=== PATIENT | female | born 1950 | race Caucasian/White ===

== ENCOUNTER → 2017-01-17 | Outpatient (CLI) | payer MEDICARE ==
[~2017-01-17] MED LIST: ACCUNEB 0.1.25 MG/1 NEB; ADVAIR 250/501 EA INH; ALBUTEROL0.09 MG/A2 IH; ALBUTEROL2.5 MG/0.5 INH; AMBIEN10 M1 PO; ANAPROX DS550 MG PO; AUGMENTIN 875 M1 TAB PO; BIAXIN500 MG PO; BROMFED 2 MG/5120 ML PO; BUDESONIDE3 MG PO; BUSPAR5 MG PO; CLARITIN10 MG PO; COMBIVENT1 ARO IH; DAYPRO600 M1 PO; ENDOCORT; FLONASE ALLERG9.9 ML NAS; IBU800 MG PO; KEFLEX500 MG PO; KETOROLAC10 MG PO; LEVOFLOXACIN500 MG PO; MEDROL DOSEPAK4 MG PO; MELATONIN5 MG PO; MIRALAX POWDER17 G1 PO; NORCO 5-325 TA1 EACH PO; PREDNICOT10 MG PO; PREDNICOT20 MG PO; PREDNISONE10 MG PO; PREDNISONE20 M1 PO; PREDNISONE20 MG PO; PROTONIX40 MG PO; PROVENTIL; PROVENTIL0.09 MG/AC IH; RITE AID MELATON5 MG PO; ROBAXIN500 M1 PO; ROBAXIN500 MG PO; ROBITUSSIN DM 105 ML PO; SYMBICORT1 AE1 IH; TESSALON PERLE100 M1 PO; TORADOL10 MG PO; UNKNOWN INHALER; VALIUM10 MG; VIBRAMYCIN100 MG PO; VICODIN 5-3001 EACH PO; VICODIN 5/500 505 MG PO; VICODIN 500 MG-1 TAB PO; VICODIN ES 7501 TAB PO; VOLTAREN50 M1 PO; XANAX1 MG; ZANTAC150 MG PO; ZITHROMAX Z PA250 MG PO; ZOFRAN4 MG PO
== END | disposition home or self-care (01) ==
LOC: RAD 18:09
DX: M25.552 Pain in left hip (principal); R26.2 Difficulty in walking, not elsewhere classified; R10.2 Pelvic and perineal pain

== ENCOUNTER 2017-04-17 09:50 | Emergency (ER) | payer MEDICARE ==
[~2017-04-17] VITALS: Wt 41.7 kg
[2017-04-17 09:56] VITALS: BP 139/70
[2017-04-17] MEDS ORDERED: LIDODERM 5% PATC1 EA PO ×2 (10:16→10:27)
== END 2017-04-17 10:37 | disposition home or self-care (01) ==
LOC: ED 09:50
DX: G89.29 Other chronic pain (principal); M54.9 Dorsalgia, unspecified; F17.200 Nicotine dependence, unspecified, uncomplicated; J44.9 Chronic obstructive pulmonary disease, unspecified; Z88.8 Allergy status to other drugs, medicaments and biological substances; Z91.040 Latex allergy status; Z79.899 Other long term (current) drug therapy

== ENCOUNTER → 2017-06-05 | Outpatient (CLI) | payer MEDICARE ==
[~2017-06-05] MED LIST changes: +LIDODERM 5% PATC1 EA PO
== END | disposition home or self-care (01) ==
LOC: CT 11:23
DX: J18.9 Pneumonia, unspecified organism (principal); R10.31 Right lower quadrant pain; K76.89 Other specified diseases of liver; Z90.49 Acquired absence of other specified parts of digestive tract; Z96.89 Presence of other specified functional implants

== ENCOUNTER 2017-06-08 11:46 | Emergency (ER) | payer MEDICARE ==
[~2017-06-08] VITALS: Ht 149.8 cm; Wt 39.9 kg
[2017-06-08 11:57] VITALS: BP 109/62
== END 2017-06-08 12:42 | disposition left against medical advice (07) ==
LOC: ED 11:46
DX: M25.551 Pain in right hip (principal); F17.200 Nicotine dependence, unspecified, uncomplicated; Z88.8 Allergy status to other drugs, medicaments and biological substances; Z91.040 Latex allergy status; Z53.20 Procedure and treatment not carried out because of patient's decision for unspecified reasons

== ENCOUNTER → 2017-06-11 | Outpatient (CLI) | payer MEDICARE | END | disposition home or self-care (01) | LOC: RAD 13:39 | DX: J44.9 Chronic obstructive pulmonary disease, unspecified (principal); J45.909 Unspecified asthma, uncomplicated; I25.2 Old myocardial infarction; M25.551 Pain in right hip ==

== ENCOUNTER 2017-09-30 00:37 | Inpatient (IN) | payer MEDICARE ==
[2017-09-30] VITALS (15 sets, daily range): BP systolic 97–136; BP diastolic 46–66
[~2017-09-30] VITALS: Ht 152.4 cm; Wt 41.5 kg
--- NOTE | ~2017-09-30 | EKG ---
[place], [place] ELECTROCARDIOGRAM REPORT NAME: MARTI ZAVALA UNIT #: [id number] ROOM: 405 DOCTOR: ADRIANE PONCE,KARI BIRTHDATE: [birth year] DOS: 09/30/2017 TIME: 1:10 a.m. IMPRESSION: 1. Sinus rhythm. 2. Normal QT interval. KARI FORREST MD CM:EKGRPT:ELECTROCARDIOGRAM REPORT [id number] KARI FORREST MD
[~2017-09-30 00:37] MED LIST changes: -XANAX1 MG; +XANAX1 MG PO
[2017-09-30 01:16] LABS: BASO % 0.4 % (0.0-1.0); EOS # 0.2 10*3/uL (0.0-0.4); EOS % 2.9 % (1.0-4.0); HEMATOCRIT 41.5 % (37.0-47.0); HEMOGLOBIN 13.8 g/dl (12.0-16.0); LYMPH # 2.7 10*3/uL (1.3-4.4); LYMPH % 39.4 % (27.0-41.0); MEAN CELL VOLUME 88.3 fl (81.0-99.0); MEAN CORPUSCULAR HGB 29.4 pg (27.0-31.0); MEAN CORPUSCULAR HGB CONC 33.3 g/dl (33.0-37.0); MEAN PLATELET VOLUME 10.4 fl (9.6-12.3); MONO # 0.6 10*3/uL (0.1-1.0); MONO % 8.2 % (3.0-9.0); NEUT # 3.4 10*3/uL (2.3-7.9); NEUT % 48.8 % (47.0-73.0); PLATELET COUNT AUTOMATED 214 10*3/uL (130-400); RED CELL DISTRI WIDTH 14.8 % (0-14.5); WHITE BLOOD COUNT 6.9 10*3/uL (4.8-10.8)
[2017-09-30 01:34] LABS: BILIRUBIN NEGATIVE (NEGATIVE); BLOOD NEGATIVE (NEGATIVE); CLARITY CLEAR (CLEAR); COLOR YELLOW (YELLOW); GLUCOSE NEGATIVE (NEGATIVE); KETONE NEGATIVE (NEGATIVE); LEUKO ESTERASE NEGATIVE (NEGATIVE); NITRITE NEGATIVE (NEGATIVE); SPECIFIC GRAVITY <= 1.005 (1.005-1.030); UROBILINOGEN 0.2 E.U./dl (0.2-1.0)
[2017-09-30 01:35] LABS: ALBUMIN 3.8 gm/dl (3.1-4.5); ALKALINE PHOSPHATASE 91 U/L (45-117); BUN 14 mg/dl (7-24); CHLORIDE 108 mmol/L (98-107); CREATININE 0.82 mg/dL (0.55-1.02); LIPASE 167 U/L (73-393); POTASSIUM 3.9 mmol/L (3.5-5.1); SGOT/AST 18 IU/L (3-35); SGPT/ALT 18 U/L (12-78); SODIUM 141 mmol/L (136-145); TROPONIN I < 0.015 ng/ml (<0.045)
[2017-09-30 01:42] LABS: BACTERIA 1+
--- NOTE | 2017-09-30 02:33 | NUR ---
RE EVALUATED PATIENTS PAIN. PT STATES ABDOMINAL PAIN 05/06. NOTIFIED.
[2017-09-30] MEDS ORDERED: NEURONTIN100 MG PO (03:36)
[2017-09-30] MEDS ORDERED: SENEXON-S TABL1 EACH PO (03:37)
[2017-09-30] MEDS ORDERED: ENTOCORT EC3 MG PO (03:38)
[2017-09-30] MEDS ORDERED: MELATONIN10 M4 PO (03:41)
[2017-09-30] MEDS ORDERED: SPIRIVA -- 3018 MCG INH (03:43)
--- NOTE | 2017-09-30 03:50 | NUR ---
A 67, admitted to , under the services of TOBY Schwartz DO with a diagnosis of INTRACTABLE ABD PAIN. Chief complaint is ABD PAIN. Patient arrived via stretcher from ER. Monitor applied. Initial assessment completed. Vital signs taken and recorded. TOBY SCHWARTZ DO notified of admission to the unit. Orders received. See assessment for past medical history, medications and allergies. Patient and/or family oriented to unit. [facility] visitation policy reviewed. Clothing/patient valuable form completed. NOHEMY PECK
--- NOTE | 2017-09-30 03:57 | NUR ---
MED REC COMPLETED WITH PATIENT ALERT AND ORIENTED X3
--- NOTE | 2017-09-30 04:15 | NUR ---
DR PETER AWARE OF PATIENT ON FLOOR AND READY FOR ORDERS.
[2017-09-30 06:53] LABS: BASO % 0.2 % (0.0-1.0); EOS # 0.2 10*3/uL (0.0-0.4); EOS % 3.1 % (1.0-4.0); HEMOGLOBIN 12.9 g/dl (12.0-16.0); LYMPH # 2.6 10*3/uL (1.3-4.4); LYMPH % 45.1 % (27.0-41.0); MEAN CELL VOLUME 90.1 fl (81.0-99.0); MEAN CORPUSCULAR HGB 29.1 pg (27.0-31.0); MEAN CORPUSCULAR HGB CONC 32.3 g/dl (33.0-37.0); MONO # 0.5 10*3/uL (0.1-1.0); MONO % 8.5 % (3.0-9.0); NEUT # 2.5 10*3/uL (2.3-7.9); NEUT % 42.9 % (47.0-73.0); PLATELET COUNT AUTOMATED 183 10*3/uL (130-400); RED BLOOD COUNT 4.44 10*6/uL (4.10-5.10); RED CELL DISTRI WIDTH 15.1 % (0-14.5); WHITE BLOOD COUNT 5.8 10*3/uL (4.8-10.8)
--- NOTE | 2017-09-30 07:15 | NUR ---
DR GUNN AWARE OF CONSULT. STATES HE WILL SEE PATIENT WHEN HE GETS HERE.
[2017-09-30 07:30] LABS: CHLORIDE 108 mmol/L (98-107); CHOLESTEROL 186 mg/dL (<200); POTASSIUM 4.2 mmol/L (3.5-5.1); SODIUM 143 mmol/L (136-145)
[2017-09-30 07:36] LABS: ACT PARTIAL THROMBO TIME 24.3 SECONDS (20.8-31.5); ALBUMIN 3.3 gm/dl (3.1-4.5); ALKALINE PHOSPHATASE 78 U/L (45-117); BUN 13 mg/dl (7-24); CREATININE 0.88 mg/dL (0.55-1.02); FREE T4 0.95 ng/dl (0.76-1.46); HDL CHOLESTEROL 81 mg/dl (40-60); LDL CHOLESTEROL 93 mg/dL (9-159); PHOSPHOROUS 4.6 mg/dL (2.5-4.9); SGOT/AST 10 IU/L (3-35); SGPT/ALT 17 U/L (12-78); TOTAL PROTEIN 6.5 gm/dL (6.4-8.2); TRIGLYCERIDES 58 mg/dl (<150); VLDL CHOLESTEROL 12 mg/dL (6-40)
--- NOTE | 2017-09-30 09:26 | NUR ---
PATIENT UP WALKING IN ROOM IN AM. PATIENT TO HAVE EGD, PAPER WORK FOR ER COMPLETED. DR CALLAHAN PRESENT IN HOUSE. PATIENT HAS BEEN NPO. IV LEFT AC INTACT. PATIENT'S FAMILY CALLED NO ANSWER. PATIENT TAKEN OFF OF THE FLOOR VIA OR AT 0852.
[2017-09-30 09:45] LABS: VITAMIN D, 25-HYDROXY 15.2 ng/mL (30-100)
--- NOTE | 2017-09-30 10:49 | NUR ---
PATIENT RETURNED TO ROOM AT 1030. AWAKE AND ALERT.
--- NOTE | 2017-09-30 19:06 | NUR ---
PATIENT VERY RESTLESS IN BED. COMPLAINS OF BACK AND ABDOMINAL PAIN. PAIN 10/10. PAIN MEDICATION REQUESTED, GIVEN PER PRN ORDER.
--- NOTE | 2017-09-30 20:00 | NUR ---
PT RESTING IN BED. PT REQUESTED 2000 MEDICATION, PT STATES THAT SHE WANTS TO GO TO SLEEP AND NOT BE BOTHERED. RESPS EASY AND REGULAR. CALL LIGHT IN REACH.
[2017-10-01] VITALS: BP 112/88
--- NOTE | 2017-10-01 00:26 | NUR ---
MEDICATED WITH PRN DILAUDID FOR C/O LOWER BACK AND ABDOMINAL PAIN. RATES 06/06. WILL MONITOR FOR EFFECTIVENESS.
--- NOTE | 2017-10-01 02:22 | NUR ---
PT RESTING IN BED WITH EYES CLOSED. RESPS ARE EASY AND UNLABORED. CALL LIGHT IN REACH.
[2017-10-01 08:00] VITALS: BP 118/61
--- NOTE | 2017-10-01 08:00 | NUR ---
IN BED AWAKE ALERT AND ORIENTED X3, SEE ASSESS. WILL CONT TO MONITOR. CALL LIGHT IN REACH. DAUGHTER AT BEDSIDE.
[2017-10-01 08:12] LABS: HEPATITIS B SURFACE AG Negative (Negative); HEPATITIS C VIRUS ANTIBODY <0.1 s/co (0.0-0.9)
--- NOTE | 2017-10-01 08:25 | NUR ---
C/O ABD AND BACK PAIN OF 8. DIALUADID GIVEN PER PT REQUEST. WILL CONT TO MONITOR. CALL LIGHT IN REACH.
--- NOTE | 2017-10-01 09:00 | NUR ---
Railroad Car Inspector in to talk to patient. Patient states lives at home alone. Daughter is helping her presently. There are 0 steps in the home. Physician: Dr. Lelo Hankins Pharmacy: [facility] Home health services: none, refuses Patient's level of ADLs: INDEPENDENT Patient has working utilities: yes DME: none Follow-up physician's appointment after d/c: will be made by hospitalist nurse director upon discharge Does patient want to access PORTAL?: no Discharge plan discussed with patient. She is independent in her ADLs and ambulation. She lives at home alone but the daughter is currently staying with her and helping. She refuses home health. When medically stable the patient wants to be discharged home. JUAN R PATIÑO
--- NOTE | 2017-10-01 09:25 | NUR ---
IV DILAUDID EFF FOR PAIN PER PT. WILL CONT TO MONITOR. CALL LIGHT IN REACH.
[2017-10-01] MEDS ORDERED: VITAMIN D-32000 UNI1 PO (10:29)
--- NOTE | 2017-10-01 11:07 | NUR ---
IV DILAUDID GIVEN AT THIS TIME FOR C/O ABD AND BACK PAIN OF 7/10. WILL CONT TO MONITOR.
[2017-10-01] MEDS ORDERED: Carafate1 GM PO (11:43)
--- NOTE | 2017-10-01 11:57 | NUR ---
DISCHARGED AT THIS TIME. IV REMOVED AND PRESSURE DRESSING APPLIED. VERBALIZED UNDERSTANDING OF DISCHARGE INSTRUCTIONS. GARRICK YIN STATED SHE WILL SEND A SCRIPT FOR CARAFATE TO THE PHARMACY ON FILE. I NOTIFIED PT OF THIS.
== END 2017-10-01 11:57 | disposition home or self-care (01) | DRG 384 ==
LOC: ED 00:37 → EDHOLD 03:25 → 4E 03:25
PROVIDERS: Emergency Medicine Emergency Medical Services; Hospitalist; ADMIT Internal Medicine
PROC: 0DB68ZX Excision of Stomach, Via Natural or Artificial Opening Endoscopic, Diagnostic (ICD-10-PCS; principal; 2017-09-30)
DX: K25.3 Acute gastric ulcer without hemorrhage or perforation (principal); J44.1 Chronic obstructive pulmonary disease with (acute) exacerbation; K51.90 Ulcerative colitis, unspecified, without complications; F41.9 Anxiety disorder, unspecified; F17.200 Nicotine dependence, unspecified, uncomplicated; M54.42 Lumbago with sciatica, left side; K59.00 Constipation, unspecified; Z60.2 Problems related to living alone; G89.4 Chronic pain syndrome; M54.41 Lumbago with sciatica, right side; Z96.89 Presence of other specified functional implants; Z88.8 Allergy status to other drugs, medicaments and biological substances; Z91.040 Latex allergy status; Z87.442 Personal history of urinary calculi; Z90.49 Acquired absence of other specified parts of digestive tract; Z83.3 Family history of diabetes mellitus; Z79.899 Other long term (current) drug therapy; Z98.82 Breast implant status

== ENCOUNTER 2017-10-28 11:24 | Emergency (ER) | payer OTHER ==
[~2017-10-28] VITALS: Wt 41.7 kg
[~2017-10-28 11:24] MED LIST changes: +Carafate1 GM PO; +ENTOCORT EC3 MG PO; +MELATONIN10 M4 PO; +NEURONTIN100 MG PO; +SENEXON-S TABL1 EACH PO; +SPIRIVA -- 3018 MCG INH; +VITAMIN D-32000 UNI1 PO
[2017-10-28 11:36] VITALS: BP 131/66
[2017-10-28] MEDS ORDERED: KEFLEX500 M1 PO (12:03)
[2017-10-28] MEDS ORDERED: NAPROSYN500 MG PO (12:11)
== END 2017-10-28 12:25 | disposition home or self-care (01) ==
LOC: ED 11:24
DX: L02.01 Cutaneous abscess of face (principal); F17.200 Nicotine dependence, unspecified, uncomplicated; Z98.890 Other specified postprocedural states; Z90.49 Acquired absence of other specified parts of digestive tract; Z79.899 Other long term (current) drug therapy; Z91.040 Latex allergy status; Z88.8 Allergy status to other drugs, medicaments and biological substances; Z88.6 Allergy status to analgesic agent

== ENCOUNTER 2017-10-31 11:45 | Emergency (ER) | payer OTHER ==
[~2017-10-31] VITALS: Ht 149.8 cm; Wt 42.6 kg
[~2017-10-31 11:45] MED LIST changes: +KEFLEX500 M1 PO; +NAPROSYN500 MG PO
[2017-10-31] MEDS ORDERED: VICODIN 5-3001 EACH PO (12:04)
[2017-10-31 12:08] VITALS: BP 111/59
[2017-10-31 13:02] LABS: BASO % 0.3 % (0.0-1.0); EOS # 0.2 10*3/uL (0.0-0.4); EOS % 2.4 % (1.0-4.0); HEMATOCRIT 40.7 % (37.0-47.0); HEMOGLOBIN 13.1 g/dl (12.0-16.0); LYMPH # 2.8 10*3/uL (1.3-4.4); LYMPH % 42.7 % (27.0-41.0); MEAN CELL VOLUME 90.6 fl (81.0-99.0); MEAN CORPUSCULAR HGB 29.2 pg (27.0-31.0); MEAN CORPUSCULAR HGB CONC 32.2 g/dl (33.0-37.0); MONO # 0.7 10*3/uL (0.1-1.0); MONO % 10.2 % (3.0-9.0); NEUT # 2.9 10*3/uL (2.3-7.9); NEUT % 44.1 % (47.0-73.0); PLATELET COUNT AUTOMATED 273 10*3/uL (130-400); RED BLOOD COUNT 4.49 10*6/uL (4.10-5.10); RED CELL DISTRI WIDTH 13.9 % (0-14.5); WHITE BLOOD COUNT 6.6 10*3/uL (4.8-10.8)
[2017-10-31 13:16] LABS: ALKALINE PHOSPHATASE 85 U/L (45-117); BUN 18 mg/dl (7-24); CHLORIDE 107 mmol/L (98-107); CREATININE 0.99 mg/dL (0.55-1.02); POTASSIUM 4.8 mmol/L (3.5-5.1); SGOT/AST 14 IU/L (3-35); SGPT/ALT 17 U/L (12-78); SODIUM 141 mmol/L (136-145); TOTAL PROTEIN 7.5 gm/dL (6.4-8.2)
[2017-10-31] MEDS ORDERED: SEPTDS PO (14:53)
[2017-10-31] MEDS ORDERED: NAPROSYN500 MG PO (15:26)
== END 2017-10-31 15:34 | disposition home or self-care (01) ==
LOC: ED 11:45
PROVIDERS: Student in an Organized Health Care Education/Training Program
DX: L02.01 Cutaneous abscess of face (principal); F17.200 Nicotine dependence, unspecified, uncomplicated; G89.29 Other chronic pain; J44.9 Chronic obstructive pulmonary disease, unspecified; Z98.890 Other specified postprocedural states; Z90.49 Acquired absence of other specified parts of digestive tract; Z87.442 Personal history of urinary calculi; Z79.899 Other long term (current) drug therapy; Z88.8 Allergy status to other drugs, medicaments and biological substances; Z91.040 Latex allergy status; Z88.6 Allergy status to analgesic agent

== ENCOUNTER → 2017-11-11 | Day surgery (SDC) | payer OTHER ==
[2017-11-11] VITALS (7 sets, daily range): BP systolic 113–137; BP diastolic 46–74
[~2017-11-11] VITALS: Ht 152.4 cm; Wt 42.2 kg
[~2017-11-11] MED LIST changes: +SEPTDS PO
== END ==
LOC: SDC 11-08 09:30
DX: K25.9 Gastric ulcer, unspecified as acute or chronic, without hemorrhage or perforation (principal); K44.9 Diaphragmatic hernia without obstruction or gangrene; K29.70 Gastritis, unspecified, without bleeding; F41.9 Anxiety disorder, unspecified; K21.9 Gastro-esophageal reflux disease without esophagitis; J44.9 Chronic obstructive pulmonary disease, unspecified; G43.909 Migraine, unspecified, not intractable, without status migrainosus; I48.91 Unspecified atrial fibrillation; Z90.710 Acquired absence of both cervix and uterus; F17.210 Nicotine dependence, cigarettes, uncomplicated; Z88.8 Allergy status to other drugs, medicaments and biological substances

== ENCOUNTER 2018-02-18 21:02 | Emergency (ER) | payer OTHER ==
[~2018-02-18] VITALS: Ht 149.8 cm; Wt 39.9 kg
[2018-02-18 21:13] VITALS: BP 128/61
== END 2018-02-18 23:36 | disposition home or self-care (01) ==
LOC: ED 21:02
DX: S70.01XA Contusion of right hip, initial encounter (principal); J44.9 Chronic obstructive pulmonary disease, unspecified; Z91.041 Radiographic dye allergy status; Z91.040 Latex allergy status; Z88.6 Allergy status to analgesic agent; Z88.8 Allergy status to other drugs, medicaments and biological substances; Z79.899 Other long term (current) drug therapy; W01.0XXA Fall on same level from slipping, tripping and stumbling without subsequent striking against object, initial encounter; Y93.89 Activity, other specified; Y92.89 Other specified places as the place of occurrence of the external cause; Y99.8 Other external cause status

== ENCOUNTER 2018-04-17 21:52 | Emergency (ER) | payer OTHER ==
[~2018-04-17] VITALS: Ht 149.8 cm; Wt 39.9 kg
[2018-04-17] MEDS ORDERED: HYDROCODONE-AC1 EAC1 PO (22:29)
[2018-04-17 22:43] LABS: BASO % 0.3 % (0.0-1.0); EOS # 0.1 10*3/uL (0.0-0.4); EOS % 1.1 % (1.0-4.0); HEMATOCRIT 40.9 % (37.0-47.0); HEMOGLOBIN 13.1 g/dl (12.0-16.0); LYMPH # 2.5 10*3/uL (1.3-4.4); LYMPH % 31.5 % (27.0-41.0); MEAN CELL VOLUME 93.6 fl (81.0-99.0); MEAN PLATELET VOLUME 9.6 fl (9.6-12.3); MONO # 0.8 10*3/uL (0.1-1.0); MONO % 10.4 % (3.0-9.0); NEUT # 4.5 10*3/uL (2.3-7.9); NEUT % 56.4 % (47.0-73.0); PLATELET COUNT AUTOMATED 282 10*3/uL (130-400); RED BLOOD COUNT 4.37 10*6/uL (4.10-5.10); WHITE BLOOD COUNT 7.9 10*3/uL (4.8-10.8)
[2018-04-17 23:02] LABS: ALBUMIN 3.6 gm/dl (3.1-4.5); ALKALINE PHOSPHATASE 75 U/L (45-117); BUN 14 mg/dl (7-24); CHLORIDE 113 mmol/L (98-107); LIPASE 274 U/L (73-393); POTASSIUM 3.2 mmol/L (3.5-5.1); SGOT/AST 12 IU/L (3-35); SGPT/ALT 31 U/L (12-78); SODIUM 146 mmol/L (136-145); TOTAL PROTEIN 7.1 gm/dL (6.4-8.2)
[2018-04-17 23:49] LABS: BILIRUBIN NEGATIVE (NEGATIVE); BLOOD NEGATIVE (NEGATIVE); CLARITY CLEAR (CLEAR); COLOR YELLOW (YELLOW); GLUCOSE NEGATIVE (NEGATIVE); KETONE NEGATIVE (NEGATIVE); LEUKO ESTERASE NEGATIVE (NEGATIVE); NITRITE NEGATIVE (NEGATIVE); PH 5.5 (5.0-9.0); UROBILINOGEN 0.2 E.U./dl (0.2-1.0)
[2018-04-18 00:26] LABS: BACTERIA 1+; CALCIUM OXALATE CRYSTALS TR; EPITHELIAL CELLS TNTC; RBC 0-2 rbc/hpf (0-2); WBC 0-2 wbc/hpf (0-5)
[2018-04-18 03:45] VITALS: BP 121/66
== END 2018-04-18 04:09 | disposition home or self-care (01) ==
LOC: ED 21:52
PROVIDERS: Emergency Medicine
DX: R10.9 Unspecified abdominal pain (principal); G89.29 Other chronic pain; J44.1 Chronic obstructive pulmonary disease with (acute) exacerbation; Z91.041 Radiographic dye allergy status; Z91.040 Latex allergy status; Z88.6 Allergy status to analgesic agent; Z88.5 Allergy status to narcotic agent; Z88.8 Allergy status to other drugs, medicaments and biological substances; Z79.899 Other long term (current) drug therapy; Z90.49 Acquired absence of other specified parts of digestive tract

== ENCOUNTER 2018-08-26 13:32 | Emergency (ER) | payer OTHER ==
[~2018-08-26] VITALS: Ht 149.8 cm; Wt 40.8 kg
[2018-08-26 13:32] VITALS: BP 159/99
[~2018-08-26 13:32] MED LIST changes: +HYDROCODONE-AC1 EAC1 PO
[2018-08-26] MEDS ORDERED: CEPHALEXIN500 M1 PO (15:07)
== END 2018-08-26 15:52 | disposition home or self-care (01) ==
LOC: ED 13:32
DX: L03.011 Cellulitis of right finger (principal); M18.11 Unilateral primary osteoarthritis of first carpometacarpal joint, right hand; F17.200 Nicotine dependence, unspecified, uncomplicated; Z91.041 Radiographic dye allergy status; Z88.6 Allergy status to analgesic agent; Z91.040 Latex allergy status; Z88.5 Allergy status to narcotic agent; Z88.8 Allergy status to other drugs, medicaments and biological substances; Z79.899 Other long term (current) drug therapy; Z87.442 Personal history of urinary calculi; Z90.49 Acquired absence of other specified parts of digestive tract

== ENCOUNTER 2018-09-18 11:39 | Inpatient (IN) | payer OTHER ==
[~2018-09-18] VITALS: Ht 144.7 cm; Wt 40.4 kg
[2018-09-18] VITALS (7 sets, daily range): BP systolic 110–153; BP diastolic 48–80
--- NOTE | ~2018-09-18 | EKG ---
[place], [place] ELECTROCARDIOGRAM REPORT NAME: MARTI ZAVALA UNIT #: [id number] ROOM: 404 DOCTOR: JOANNE DRAFT REPORT BIRTHDATE: [birth year] [facility] Test Date: 2018-09-18 Test Time: 11:46:02 Pat Name: MARTI ZAVALA Department: Room: 404 Gender: F Parks Recreation Director: Ronit Samaniego : 1950 Requested By: TRISHA WHEELER Order Number: [id number] Reading MD: Nidhi Forde MD Measurements Intervals [place] Rate: 178 P: [place]: QRS: -56 QRSD: 79 T: 72 QT: 295 QTc: 508 Interpretive Statements Atrial fibrillation with rapid V-rate Ventricular premature complex Left anterior fascicular block ST depression, probably rate related Electronically Signed On 09-23-2018 11:06:56 PST by Nidhi Forde MD CM:EKGRPT:ELECTROCARDIOGRAM REPORT [id number] TRISHA RUBIO DRAFT REPORT TRISHA WHEELER M.D.
--- NOTE | ~2018-09-18 | EKG ---
[place], [place] ELECTROCARDIOGRAM REPORT NAME: MARTI ZAVALA UNIT #: [id number] ROOM: 404 DOCTOR: JOANNE DRAFT REPORT BIRTHDATE: [birth year] [facility] Test Date: 2018-09-18 Test Time: 12:36:32 Pat Name: MARTI ZAVALA Department: Room: 404 Gender: F Regulatory Compliance Coordinator: Ronit Samaniego : 1950 Requested By: TRISHA WHEELER Order Number: [id number] Reading MD: Nidhi Forde MD Measurements Intervals [place] Rate: 97 P: 72 [place]: 131 QRS: -32 QRSD: 74 T: 56 QT: 359 QTc: 456 Interpretive Statements Sinus rhythm Left axis deviation Electronically Signed On 09-23-2018 11:07:03 PST by Nidhi Forde MD CM:EKGRPT:ELECTROCARDIOGRAM REPORT [id number] TRISHA RUBIO DRAFT REPORT TRISHA WHEELER M.D.
--- NOTE | ~2018-09-18 | ST ---
[place], [place] EXERCISE STRESS TEST REPORT NAME: MARTI ZAVALA UNIT #: [id number] ROOM: 404 DOCTOR: ADRIANE PONCE,KARI BIRTHDATE: [birth year] DOS: 09/19/2018 REASON FOR TEST: Abnormal EKG and atrial fibrillation and shortness of breath. PHYSICAL EXAMINATION NECK: Supple. LUNGS: Clear anteriorly. HEART: Regular rhythm. PROTOCOL: Champ protocol. Total stress time 3 minutes. Maximum 142, which is 94% target heart rate. Peak blood pressure 168/70, adequate response. Total mets 4.7 mets. SYMPTOMS: The patient is chest pain free. EKG: Resting EKG showed sinus rhythm. Stress EKG occasional PVCs, no ischemia. CONCLUSION: Clinically, the patient is chest pain. EKG nonischemic. Occasional ventricular ectopy. POST-STRESS COMPLICATIONS: None. KARI FORREST MD CM:STRESS:EXERCISE STRESS TEST REPORT [id number] KARI FORREST MD
--- NOTE | ~2018-09-18 | CON ---
[place], [place] REPORT OF CONSULTATION NAME: MARTI ZAVALA UNIT #: [id number] ROOM: 404 DOCTOR: ADRIANE PONCE,KARI BIRTHDATE: [birth year] DOS: 09/19/2018 REASON FOR CONSULTATION: Atrial fibrillation. CLINICAL HISTORY: The patient is a 68-year-old patient came in with history of COPD and ulcerative colitis, came to the Emergency Room for shortness of breath and some fatigue. She wanted to be atrial fibrillation with rapid ventricular rate. Her rates were controlled. She was admitted to the hospital and Cardiology consult for further recommendations. Other than his symptoms of heart palpitations and shortness of breath, she denied any chest pain, no dizziness, no syncope, no fever and chills. No nausea, vomiting or diarrhea. The patient did have some cough few days ago, but no hemoptysis. No bladder or bowel symptoms. No musculoskeletal symptoms. The patient does smoke about half pack a day. REVIEW OF SYSTEMS: Review of the 10 system negative except as mentioned above. PAST MEDICAL HISTORY: 1. COPD. 2. Ulcerative colitis. 3. Chronic low back pain. 4. Peptic ulcer disease. 5. History of osteoarthritis. 6. Hiatal hernia. PAST SURGICAL HISTORY: 1. History of hernia repair. 2. Cholecystectomy. 3. ____ colon surgery. SOCIAL HISTORY: The patient does smoke currently about half pack a day. Denies any alcohol or illicit drug abuse. FAMILY HISTORY: Father has diabetes, in his 80s. Mother in her 70s. ALLERGIES: The patient has multiple drug allergies reviewed including IVP DYE. HOME MEDICATIONS: Reviewed. PHYSICAL EXAMINATION: VITAL SIGNS: Blood pressure 102/51, pulse 83, respiration is 18, weight 40.3 kilos and BMI 19.3. GENERAL: Alert, comfortable, in no acute distress. NECK: Supple, no distended neck veins, no carotid bruit. Tongue was moist and pharynx clear. CHEST: Symmetrical, nontender. LUNGS: Clear to auscultation bilaterally. HEART: Regular rhythm, no S3. Grade 1/6 systolic murmur. ABDOMEN: Benign, nontender. Bowel sounds normal. [place], [place] REPORT OF CONSULTATION NAME: MARTI ZAVALA UNIT #: [id number] ROOM: [facility] DOCTOR: ADRIANE PONCE,KARI BIRTHDATE: [birth year] EXTREMITIES: Showed no edema. Distal pulses palpable. SKIN: Warm and dry. No cyanosis, no clubbing. RECTAL: Deferred. GENITOURINARY: Deferred. MUSCULOSKELETAL: No joint tenderness or swelling. REVIEW OF THE DIAGNOSTIC TESTS: EKG showed atrial fibrillation with rapid ventricular rate. CBC, chemistry and labs reviewed. Potassium 4.0, creatinine 0.7. Hemoglobin 13.8. White cell count 07294, platelets 245. INR 1.0. IMPRESSIONS: 1. Atrial fibrillation, rapid ventricular rate, currently in sinus rhythm. CHADS2-VASc score is 2. 2. History of mitral valve disease. 3. Tobacco smoking. 4. Mild shortness of breath due to chronic obstructive pulmonary disease. No acute congestive heart failure. 5. Leukocytosis. 6. History of ulcerative colitis. RECOMMENDATIONS: 1. Currently, blood pressure and heart rates are stable. Risk and benefits of the oral anticoagulation discussed. 2. A 2D echo is pending. Based on a 2D echo with her history of "mitral valve disease", I would recommend Coumadin versus new oral anticoagulants. If she has signal of mitral stenosis, then then she has been on Coumadin; otherwise, I would recommend Eliquis. Again, risks, benefits and cost issues were discussed and the patient agreeable. 3. Exercise nuclear stress test today to rule out ischemia due to her coronary artery disease risk factors and new atrial fibrillation. 4. The patient ____ counseled to quit smoking. 5. Further recommendation based on her stress test echo and her symptoms. 6. There is no family at bedside at the time of my examination. KARI FORREST MD CM:CONSTR:REPORT OF CONSULTATION 12 09/19/18 222 interface
[~2018-09-18 11:39] MED LIST changes: +CEPHALEXIN500 M1 PO
[2018-09-18 12:18] LABS: BASO % 0.2 % (0.0-1.0); EOS # 0.1 10*3/uL (0.0-0.4); EOS % 0.3 % (1.0-4.0); HEMATOCRIT 49.1 % (37.0-47.0); HEMOGLOBIN 15.8 g/dl (12.0-16.0); LYMPH # 2.6 10*3/uL (1.3-4.4); LYMPH % 14.9 % (27.0-41.0); MEAN CELL VOLUME 93.2 fl (81.0-99.0); MEAN CORPUSCULAR HGB CONC 32.2 g/dl (33.0-37.0); MEAN PLATELET VOLUME 9.5 fl (9.6-12.3); MONO # 1.2 10*3/uL (0.1-1.0); MONO % 7.2 % (3.0-9.0); NEUT # 13.2 10*3/uL (2.3-7.9); NEUT % 77.1 % (47.0-73.0); PLATELET COUNT AUTOMATED 245 10*3/uL (130-400); RED BLOOD COUNT 5.27 10*6/uL (4.10-5.10); RED CELL DISTRI WIDTH 14.1 % (0-14.5); WHITE BLOOD COUNT 17.2 10*3/uL (4.8-10.8)
[2018-09-18 12:31] LABS: ACT PARTIAL THROMBO TIME 28.7 SECONDS (20.8-31.5)
[2018-09-18 12:38] LABS: ALBUMIN 3.2 gm/dl (3.1-4.5); ALKALINE PHOSPHATASE 88 U/L (45-117); BUN 15 mg/dl (7-24); CHLORIDE 102 mmol/L (98-107); SGOT/AST 15 IU/L (3-35); SGPT/ALT 17 U/L (12-78); SODIUM 136 mmol/L (136-145)
[2018-09-18 12:42] LABS: TROPONIN I 0.087 ng/ml (<0.045)
[2018-09-18] MEDS ORDERED: CHLORZOXAZONE500 M2 PO (14:05)
[2018-09-19] VITALS: BP 102/51
[2018-09-19 06:35] LABS: BASO % 0.1 % (0.0-1.0); LYMPH # 0.8 10*3/uL (1.3-4.4); LYMPH % 8.6 % (27.0-41.0); MEAN CELL VOLUME 91.2 fl (81.0-99.0); MEAN CORPUSCULAR HGB 29.7 pg (27.0-31.0); MEAN CORPUSCULAR HGB CONC 32.6 g/dl (33.0-37.0); MEAN PLATELET VOLUME 10.1 fl (9.6-12.3); MONO # 0.2 10*3/uL (0.1-1.0); NEUT # 7.9 10*3/uL (2.3-7.9); NEUT % 88.7 % (47.0-73.0); PLATELET COUNT AUTOMATED 227 10*3/uL (130-400); RED BLOOD COUNT 4.41 10*6/uL (4.10-5.10); RED CELL DISTRI WIDTH 13.8 % (0-14.5); WHITE BLOOD COUNT 8.9 10*3/uL (4.8-10.8)
[2018-09-19 06:43] LABS: HEMATOCRIT 40.2 % (37.0-47.0); HEMOGLOBIN 13.1 g/dl (12.0-16.0)
[2018-09-19 06:56] LABS: BUN 17 mg/dl (7-24); CHLORIDE 106 mmol/L (98-107); CHOLESTEROL 139 mg/dL (<200); CREATININE 0.71 mg/dL (0.55-1.02); HDL CHOLESTEROL 71 mg/dl (40-60); LDL CHOLESTEROL 50 mg/dL (9-159); PHOSPHOROUS 1.9 mg/dL (2.5-4.9); POTASSIUM 3.4 mmol/L (3.5-5.1); SODIUM 141 mmol/L (136-145); TRIGLYCERIDES 89 mg/dl (<150); VLDL CHOLESTEROL 18 mg/dL (6-40)
[2018-09-19 07:02] LABS: THYROID STIM HORMONE (HS) 0.179 uIU/ml (0.358-4.75)
[2018-09-19 10:11] LABS: VITAMIN D, 25-HYDROXY 15.1 ng/mL (30-100)
[2018-09-19 12:00] VITALS: BP 128/76
[2018-09-19 16:00] VITALS: BP 113/60
[2018-09-19 20:00] VITALS: BP 131/58
[2018-09-20] VITALS: BP 139/69
[2018-09-20 07:02] LABS: BASO % 0.1 % (0.0-1.0); HEMATOCRIT 36.4 % (37.0-47.0); HEMOGLOBIN 11.9 g/dl (12.0-16.0); LYMPH # 0.9 10*3/uL (1.3-4.4); LYMPH % 6.9 % (27.0-41.0); MEAN CELL VOLUME 91.7 fl (81.0-99.0); MEAN CORPUSCULAR HGB CONC 32.7 g/dl (33.0-37.0); MONO # 0.4 10*3/uL (0.1-1.0); MONO % 3.2 % (3.0-9.0); NEUT % 89.1 % (47.0-73.0); PLATELET COUNT AUTOMATED 223 10*3/uL (130-400); RED BLOOD COUNT 3.97 10*6/uL (4.10-5.10); WHITE BLOOD COUNT 12.3 10*3/uL (4.8-10.8)
[2018-09-20 07:09] LABS: BUN 18 mg/dl (7-24); CHLORIDE 111 mmol/L (98-107); CREATININE 0.69 mg/dL (0.55-1.02); FREE T4 1.17 ng/dl (0.76-1.46); PHOSPHOROUS 2.6 mg/dL (2.5-4.9); POTASSIUM 3.9 mmol/L (3.5-5.1); SODIUM 141 mmol/L (136-145)
[2018-09-20 08:00] VITALS: BP 122/60
[2018-09-20] MEDS ORDERED: ELIQUIS5 M1 PO (09:43)
[2018-09-20] MEDS ORDERED: PREDNISONE10 MG PO (09:43)
[2018-09-20] MEDS ORDERED: DOXYCYCLINE100 M3 PO (09:43)
[2018-09-20] MEDS ORDERED: POLYTRIM 1000010 ML OPH (09:43)
[2018-09-20] MEDS ORDERED: CARDIZEM CD120 M2 PO (09:44)
[2018-09-20] MEDS ORDERED: XARE20MG PO (10:32)
== END 2018-09-20 13:34 | disposition home or self-care (01) | DRG 871 ==
LOC: ED 11:39 → 4E 13:18 → EDHOLD 13:18 → 4E 13:35
PROVIDERS: Emergency Medicine; Internal Medicine; Student in an Organized Health Care Education/Training Program
PROC: 4A02XM4 Measurement of Cardiac Total Activity, External Approach (ICD-10-PCS; principal; 2018-09-19)
PROC: 3E033HZ Introduction of Radioactive Substance into Peripheral Vein, Percutaneous Approach (ICD-10-PCS; principal; 2018-09-19)
DX: A41.9 Sepsis, unspecified organism (principal); J18.9 Pneumonia, unspecified organism; E44.0 Moderate protein-calorie malnutrition; J44.1 Chronic obstructive pulmonary disease with (acute) exacerbation; I24.8 Other forms of acute ischemic heart disease; J44.0 Chronic obstructive pulmonary disease with (acute) lower respiratory infection; K51.919 Ulcerative colitis, unspecified with unspecified complications; Z68.1 Body mass index [BMI] 19.9 or less, adult; R65.20 Severe sepsis without septic shock; M54.41 Lumbago with sciatica, right side; G89.29 Other chronic pain; F17.200 Nicotine dependence, unspecified, uncomplicated; K44.9 Diaphragmatic hernia without obstruction or gangrene; M19.90 Unspecified osteoarthritis, unspecified site; H10.31 Unspecified acute conjunctivitis, right eye; E55.9 Vitamin D deficiency, unspecified; I48.91 Unspecified atrial fibrillation; Z88.5 Allergy status to narcotic agent; Z88.8 Allergy status to other drugs, medicaments and biological substances; Z88.6 Allergy status to analgesic agent; Z91.041 Radiographic dye allergy status; Z91.040 Latex allergy status; Z90.49 Acquired absence of other specified parts of digestive tract; Z90.710 Acquired absence of both cervix and uterus; Z83.3 Family history of diabetes mellitus; Z79.51 Long term (current) use of inhaled steroids; Z79.1 Long term (current) use of non-steroidal anti-inflammatories (NSAID); Z79.899 Other long term (current) drug therapy; Z71.6 Tobacco abuse counseling

== ENCOUNTER 2018-12-21 18:13 | Emergency (ER) | payer OTHER ==
[~2018-12-21] VITALS: Ht 149.8 cm; Wt 39.9 kg
[2018-12-21 18:13] VITALS: BP 136/58
[~2018-12-21 18:13] MED LIST changes: +CARDIZEM CD120 M2 PO; +CHLORZOXAZONE500 M2 PO; +DOXYCYCLINE100 M3 PO; +ELIQUIS5 M1 PO; +POLYTRIM 1000010 ML OPH; +XARE20MG PO
[2018-12-21 19:03] LABS: BASO % 0.2 % (0.0-1.0); EOS % 0.2 % (1.0-4.0); HEMATOCRIT 46.2 % (37.0-47.0); HEMOGLOBIN 15.2 g/dl (12.0-16.0); LYMPH # 2.5 10*3/uL (1.3-4.4); LYMPH % 19.9 % (27.0-41.0); MEAN CELL VOLUME 91.7 fl (81.0-99.0); MEAN CORPUSCULAR HGB 30.2 pg (27.0-31.0); MEAN CORPUSCULAR HGB CONC 32.9 g/dl (33.0-37.0); MEAN PLATELET VOLUME 9.7 fl (9.6-12.3); MONO # 0.8 10*3/uL (0.1-1.0); MONO % 6.8 % (3.0-9.0); NEUT % 72.3 % (47.0-73.0); PLATELET COUNT AUTOMATED 319 10*3/uL (130-400); RED BLOOD COUNT 5.04 10*6/uL (4.10-5.10); RED CELL DISTRI WIDTH 14.4 % (0-14.5); WHITE BLOOD COUNT 12.4 10*3/uL (4.8-10.8)
[2018-12-21 19:26] LABS: ALBUMIN 3.3 gm/dl (3.1-4.5); BUN 16 mg/dl (7-24); CHLORIDE 110 mmol/L (98-107); CREATININE 0.97 mg/dL (0.55-1.02); POTASSIUM 4.2 mmol/L (3.5-5.1); SGOT/AST 22 IU/L (3-35); SGPT/ALT 17 U/L (12-78); SODIUM 143 mmol/L (136-145)
[2018-12-21 19:31] LABS: ALKALINE PHOSPHATASE 77 U/L (45-117)
[2019-01-26] MEDS ORDERED: FUROSEMIDE20 M1 PO (15:12)
[2019-01-26] MEDS ORDERED: POTASSIUM CHLO10 ME4 PO (15:13)
[2019-01-26] MEDS ORDERED: MAGIC SWIZZLE PO (15:15)
[2019-01-26] MEDS ORDERED: NEXIUM40 MG PO (15:41)
[2019-01-26] MEDS ORDERED: BUDESONIDE EC3 MG PO (15:41)
[2019-01-26] MEDS ORDERED: 'XANAX1 MG PO (15:43)
[2019-01-30] MEDS ORDERED: ZYVOX600 MG PO (15:06)
== END 2018-12-21 20:25 | disposition home or self-care (01) ==
LOC: ED 18:13
PROVIDERS: Nurse Practitioner Family
DX: M79.661 Pain in right lower leg (principal); R20.2 Paresthesia of skin; R20.0 Anesthesia of skin; J44.9 Chronic obstructive pulmonary disease, unspecified; K21.9 Gastro-esophageal reflux disease without esophagitis; I48.91 Unspecified atrial fibrillation; Z87.891 Personal history of nicotine dependence; Z91.041 Radiographic dye allergy status; Z88.6 Allergy status to analgesic agent; Z91.040 Latex allergy status; Z88.8 Allergy status to other drugs, medicaments and biological substances; Z79.899 Other long term (current) drug therapy

== ENCOUNTER 2019-01-16 09:42 | Inpatient (IN) | payer OTHER ==
[~2019-01-16] VITALS: Ht 149.8 cm; Wt 39.2 kg
--- NOTE | ~2019-01-16 | EKG ---
[place], [place] ELECTROCARDIOGRAM REPORT NAME: MARTI ZAVALA UNIT #: [id number] ROOM: 519 DOCTOR: JOANNE DRAFT REPORT BIRTHDATE: [birth year] [facility] Test Date: 2019-01-16 Test Time: 16:44:35 Pat Name: MARTI ZAVALA Department: Room: 519 Gender: F Post Acute Care Registered Nurse: Tiffany Pride : 1950 Requested By: STEPHANIE WOODS Order Number: [id number] Reading MD: Chalo Canela Measurements Intervals [place] Rate: 90 P: 74 [place]: 129 QRS: -20 QRSD: 78 T: 41 QT: 420 QTc: 514 Interpretive Statements Sinus rhythm Atrial premature complexes Consider left ventricular hypertrophy Prolonged QT interval Compared to ECG 01/11/2019 16:44:55 Atrial premature complex(es) now present Prolonged QT interval now present Electronically Signed On 01-18-2019 11:02:50 PDT by Chalo Canela CM:EKGRPT:ELECTROCARDIOGRAM REPORT [id number] 1102 STEPHANIE GOMES DRAFT REPORT STEPHANIE WOODS DO
--- NOTE | ~2019-01-16 | EKG ---
[place], [place] ELECTROCARDIOGRAM REPORT NAME: MARTI ZAVALA UNIT #: [id number] ROOM: [facility] DOCTOR: JOANNE DRAFT REPORT BIRTHDATE: [birth year] [facility] Test Date: 2019-01-17 Test Time: 08:59:51 Pat Name: MARTI ZAVALA Department: Room: [facility] 1 Gender: F Medical Concierge: Tiffany Pride : 1950 Requested By: JOSIANE BANDA Order Number: [id number] Reading MD: Chalo Canela Measurements Intervals [place] Rate: 79 P: 75 [place]: 131 QRS: -36 QRSD: 79 T: 19 QT: 387 QTc: 444 Interpretive Statements Sinus rhythm Probable left ventricular hypertrophy Baseline wander in lead(s) V4 Compared to ECG 01/11/2019 16:44:55 No significant changes Electronically Signed On 01-18-2019 11:05:25 PDT by Chalo Canela CM:EKGRPT:ELECTROCARDIOGRAM REPORT [id number] JOSIANE GOMES DRAFT REPORT JOSIANE BANDA DO
--- NOTE | ~2019-01-16 | EKG ---
[place], [place] ELECTROCARDIOGRAM REPORT NAME: MARTI ZAVALA UNIT #: [id number] ROOM: 519 DOCTOR: JOANNE DRAFT REPORT BIRTHDATE: [birth year] [facility] Test Date: 2019-01-16 Test Time: 10:16:43 Pat Name: MARTI ZAVALA Department: Room: 519 Gender: F Warp Tension Tester: Tiffany Pride : 1950 Requested By: DANIEL CONTRERAS Order Number: [id number] Reading MD: Chalo Canela Measurements Intervals [place] Rate: 103 P: 86 [place]: 129 QRS: -45 QRSD: 81 T: -27 QT: 346 QTc: 453 Interpretive Statements Sinus tachycardia Left anterior fascicular block RSR' in V1 or V2, probably normal variant Consider left ventricular hypertrophy Borderline T abnormalities, inferior leads Baseline wander in lead(s) V5 Compared to ECG 01/11/2019 16:44:55 Left anterior fascicular block now present RSR' in V1 or V2 now present T-wave abnormality now present Sinus rhythm no longer present Electronically Signed On 01-18-2019 10:59:48 PDT by Chalo Canela CM:EKGRPT:ELECTROCARDIOGRAM REPORT [id number] DANIEL GOMES DRAFT REPORT DANIEL CONTRERAS DO
--- NOTE | ~2019-01-16 | EKG ---
[place], [place] ELECTROCARDIOGRAM REPORT NAME: MARTI ZAVALA UNIT #: [id number] ROOM: 519 DOCTOR: JOANNE DRAFT REPORT BIRTHDATE: [birth year] [facility] Test Date: 2019-01-16 Test Time: 12:59:21 Pat Name: MARTI ZAVALA Department: Room: 519 Gender: F Dry Molder: Tiffany Pride : 1950 Requested By: STEPHANIE WOODS Order Number: [id number] Reading MD: Chalo Canela Measurements Intervals [place] Rate: 95 P: 79 [place]: 122 QRS: -46 QRSD: 85 T: 1 QT: 406 QTc: 511 Interpretive Statements Sinus rhythm Atrial premature complexes LAD, consider left anterior fascicular block Probable left ventricular hypertrophy Prolonged QT interval Compared to ECG 01/11/2019 16:44:55 Atrial premature complex(es) now present Prolonged QT interval now present Electronically Signed On 01-18-2019 11:01:28 PDT by Chalo Canela CM:EKGRPT:ELECTROCARDIOGRAM REPORT [id number] STEPHANIE GOMES DRAFT REPORT STEPHANIE WOODS DO
[2019-01-16 09:44] VITALS: BP 123/54
[2019-01-16 10:43] LABS: BASO % 0.2 % (0.0-1.0); HEMATOCRIT 48.1 % (37.0-47.0); HEMOGLOBIN 15.4 g/dl (12.0-16.0); LYMPH # 1.3 10*3/uL (1.3-4.4); LYMPH % 10.1 % (27.0-41.0); MEAN CORPUSCULAR HGB 29.4 pg (27.0-31.0); MEAN PLATELET VOLUME 10.1 fl (9.6-12.3); MONO # 0.5 10*3/uL (0.1-1.0); MONO % 3.9 % (3.0-9.0); NEUT # 10.9 10*3/uL (2.3-7.9); PLATELET COUNT AUTOMATED 224 10*3/uL (130-400); RED BLOOD COUNT 5.23 10*6/uL (4.10-5.10); RED CELL DISTRI WIDTH 14.6 % (0-14.5); WHITE BLOOD COUNT 12.8 10*3/uL (4.8-10.8)
[2019-01-16 11:08] LABS: ALBUMIN 3.9 gm/dl (3.1-4.5); ALKALINE PHOSPHATASE 92 U/L (45-117); BUN 14 mg/dl (7-24); CHLORIDE 98 mmol/L (98-107); CREATININE 0.93 mg/dL (0.55-1.02); LIPASE 112 U/L (73-393); POTASSIUM 3.1 mmol/L (3.5-5.1); SGOT/AST 61 IU/L (3-35); SGPT/ALT 89 U/L (12-78); SODIUM 136 mmol/L (136-145); TOTAL PROTEIN 7.9 gm/dL (6.4-8.2)
[2019-01-16 11:16] LABS: TROPONIN I 0.059 ng/ml (<0.045)
--- NOTE | 2019-01-16 12:35 | NUR ---
THE PT IS REFUSING THE LEVAQUIN DUE TO SIDE EFFECTS
[2019-01-16 13:47] VITALS: BP 108/52
[2019-01-16 14:30] VITALS: BP 117/52
--- NOTE | 2019-01-16 14:30 | NUR ---
A 68, admitted to 5E, under the services of JOSIANE Shirley DO with a diagnosis of ACUTE/CHRONIC RESPITORY . Chief complaint is SHORTNESS. Patient arrived via bed from ER. Monitor applied. Initial assessment completed. Vital signs taken and recorded. JOSIANE SHIRLEY DO notified of admission to the unit. Orders received. See assessment for past medical history, medications and allergies. Patient and/or family oriented to unit. [facility] visitation policy reviewed. Clothing/patient valuable form completed. FRANCHESKA MOYA
[2019-01-16] MEDS ORDERED: ECOTRIN325 M1 PO (15:50)
[2019-01-16] MEDS ORDERED: REMERON15 M2 PO (15:51)
[2019-01-16 16:00] VITALS: BP 117/53
--- NOTE | 2019-01-16 16:03 | NUR ---
MEDS RECONCILED AT BEDSIDE WITH DAUGHTER AND MED LIST.NOTIFIED DR SAVAGE HE ROUNDED AND SEEN PT.
[2019-01-16 20:00] VITALS: BP 133/56
[2019-01-17] VITALS: BP 105/58
[2019-01-17 07:05] LABS: BASO % 0.1 % (0.0-1.0); HEMATOCRIT 42.4 % (37.0-47.0); LYMPH # 0.9 10*3/uL (1.3-4.4); LYMPH % 6.5 % (27.0-41.0); MEAN CELL VOLUME 94.4 fl (81.0-99.0); MEAN CORPUSCULAR HGB 29.4 pg (27.0-31.0); MEAN CORPUSCULAR HGB CONC 31.1 g/dl (33.0-37.0); MEAN PLATELET VOLUME 10.1 fl (9.6-12.3); MONO # 0.6 10*3/uL (0.1-1.0); MONO % 4.3 % (3.0-9.0); NEUT # 12.3 10*3/uL (2.3-7.9); NEUT % 88.6 % (47.0-73.0); PLATELET COUNT AUTOMATED 197 10*3/uL (130-400); RED BLOOD COUNT 4.49 10*6/uL (4.10-5.10); RED CELL DISTRI WIDTH 14.8 % (0-14.5); WHITE BLOOD COUNT 13.9 10*3/uL (4.8-10.8)
[2019-01-17 07:18] LABS: ALBUMIN 2.7 gm/dl (3.1-4.5); ALKALINE PHOSPHATASE 69 U/L (45-117); BUN 15 mg/dl (7-24); CHLORIDE 110 mmol/L (98-107); CHOLESTEROL 152 mg/dL (<200); CREATININE 0.67 mg/dL (0.55-1.02); FREE T4 1.09 ng/dl (0.76-1.46); HDL CHOLESTEROL 78 mg/dl (40-60); HEMOGLOBIN 13.2 g/dl (12.0-16.0); LDL CHOLESTEROL 61 mg/dL (9-159); PHOSPHOROUS 3.8 mg/dL (2.5-4.9); SGOT/AST 37 IU/L (3-35); SGPT/ALT 60 U/L (12-78); SODIUM 142 mmol/L (136-145); TOTAL PROTEIN 6.3 gm/dL (6.4-8.2); TRIGLYCERIDES 65 mg/dl (<150); VLDL CHOLESTEROL 13 mg/dL (6-40)
[2019-01-17 07:23] LABS: THYROID STIM HORMONE (HS) 0.262 uIU/ml (0.358-4.75)
[2019-01-17 07:24] LABS: POTASSIUM 4.6 mmol/L (3.5-5.1)
[2019-01-17 08:00] VITALS: BP 130/62
--- NOTE | 2019-01-17 08:45 | NUR ---
PT C/O CHEST PAIN AND HEADACHE. STAT EKG ORDERED AT THIS TIME NURSING MEASURE
--- NOTE | 2019-01-17 08:50 | NUR ---
DR DOW NOTIFIED OF CHEST PAIN
[2019-01-17 12:00] VITALS: BP 104/54
--- NOTE | 2019-01-17 13:43 | NUR ---
C/O HEADACHE OF 05/06 REQUESTS NORCO WHICH WAS GIVEN AT THIS TIME. WILL CONT TO MONITOR. CALL LIGHT IN REACH.
[2019-01-17 16:00] VITALS: BP 99/50
[2019-01-17 20:00] VITALS: BP 107/52
--- NOTE | 2019-01-17 20:00 | NUR ---
Patient resting quietly with no c/o discomfort. Respirations easy and regular. Vital signs stable. No overt distress. DEAN DUNCAN
[2019-01-18] VITALS: BP 95/60
--- NOTE | 2019-01-18 01:02 | NUR ---
OK TO ADMINISTER PROTONIX NOW PER DR WEAVER.
[2019-01-18 07:02] LABS: HEMATOCRIT 37.6 % (37.0-47.0); HEMOGLOBIN 11.4 g/dl (12.0-16.0); MEAN CELL VOLUME 95.9 fl (81.0-99.0); MEAN CORPUSCULAR HGB 29.1 pg (27.0-31.0); MEAN CORPUSCULAR HGB CONC 30.3 g/dl (33.0-37.0); MEAN PLATELET VOLUME 9.9 fl (9.6-12.3); PLATELET COUNT AUTOMATED 168 10*3/uL (130-400); RED BLOOD COUNT 3.92 10*6/uL (4.10-5.10); RED CELL DISTRI WIDTH 14.9 % (0-14.5); WHITE BLOOD COUNT 8.6 10*3/uL (4.8-10.8)
[2019-01-18 07:33] LABS: BURR CELLS FEW; PLATELET SUFFICIENCY NORMAL (NORMAL); TOTAL CELLS COUNTED 100 #CELLS
[2019-01-18 07:34] LABS: ALBUMIN 2.6 gm/dl (3.1-4.5); ALKALINE PHOSPHATASE 75 U/L (45-117); BUN 19 mg/dl (7-24); CHLORIDE 116 mmol/L (98-107); CREATININE 0.64 mg/dL (0.55-1.02); POTASSIUM 4.3 mmol/L (3.5-5.1); SGOT/AST 57 IU/L (3-35); SGPT/ALT 69 U/L (12-78); SODIUM 145 mmol/L (136-145); TOTAL PROTEIN 5.8 gm/dL (6.4-8.2)
[2019-01-18 08:00] VITALS: BP 134/60
--- NOTE | 2019-01-18 08:28 | NUR ---
24 HR chart check completed.
--- NOTE | 2019-01-18 08:45 | NUR ---
RESTING IN BED. NO DISTRESS NOTED. RESPIRATIONS EASY. LUNGS DIMINISHED, CLEAR. PULSE OX 100% RA. CLAIMS COUGH PROD FOR GREEN BUT NO SPUTUM SPECIMEN PROVIDED. CALL LIGHT WITHIN REACH. NO VOICED COMPLAINTS
--- NOTE | 2019-01-18 09:18 | NUR ---
DR LAUGHLIN HERE TO ASSESS PATIENT AND DISCUSS PLAN OF CARE
--- NOTE | 2019-01-18 10:10 | NUR ---
AMBULATING HALLWAY WITH MASK IN PLACE. NO DISTRESS NOTED. NO SOB. NO VOICED COMPLAINTS
--- NOTE | 2019-01-18 11:35 | NUR ---
HOME O2 ASSESSMENT ROOM AIR AT REST: SPO2 91% HR 86 RR 16 BP 134/61 ROOM AIR WITH AMBULATION: SPO2 90-92%, HR 90-104 RECOVERY ON ROOM AIR: SPO2 92% HR 82 RR 20 BP 144/16 RN NOTIFIED WITH RESULTS
[2019-01-18] MEDS ORDERED: TAMIFLU 75MG CA75 MG PO (13:19)
[2019-01-18] MEDS ORDERED: MUCINEX ER600 MG PO (13:19)
--- NOTE | 2019-01-18 13:49 | NUR ---
MEDICATED WITH NORCO PER PRN ORDER FOR COMPLAINTS OF SCIATIC PAIN RATING A 6. CALL LIGHT WITHIN REACH. WILL MONITOR FOR EFFECTIVENESS
--- NOTE | 2019-01-18 14:59 | NUR ---
Discharge instructions reviewed with patient/family. Patient receptive and verbalizes understanding. Follow-up care arranged. Written instructions given to patient/family. PATIENT TRANSPORTED OFF FLOOR VIA WC IN CARE OF FAMILY. MAULIK GARCIA
[2019-01-18 17:09] LABS: HEPATITIS B SURFACE AG Negative (Negative); HEPATITIS C VIRUS ANTIBODY <0.1 s/co (0.0-0.9)
[2019-01-26] MEDS ORDERED: FUROSEMIDE20 M1 PO (15:12)
[2019-01-26] MEDS ORDERED: POTASSIUM CHLO10 ME4 PO (15:13)
[2019-01-26] MEDS ORDERED: MAGIC SWIZZLE PO (15:15)
[2019-01-26] MEDS ORDERED: NEXIUM40 MG PO (15:41)
[2019-01-26] MEDS ORDERED: BUDESONIDE EC3 MG PO (15:41)
[2019-01-26] MEDS ORDERED: 'XANAX1 MG PO (15:43)
[2019-01-30] MEDS ORDERED: ZYVOX600 MG PO (15:06)
== END 2019-01-18 15:00 | disposition home or self-care (01) | DRG 871 ==
LOC: ED 09:42 → EDHOLD 12:16 → 5E 13:13
PROVIDERS: Emergency Medicine; Internal Medicine; Student in an Organized Health Care Education/Training Program; ADMIT Internal Medicine
DX: A41.9 Sepsis, unspecified organism (principal); J96.21 Acute and chronic respiratory failure with hypoxia; J10.00 Influenza due to other identified influenza virus with unspecified type of pneumonia; E44.0 Moderate protein-calorie malnutrition; K51.919 Ulcerative colitis, unspecified with unspecified complications; Z68.1 Body mass index [BMI] 19.9 or less, adult; R65.20 Severe sepsis without septic shock; F17.210 Nicotine dependence, cigarettes, uncomplicated; J43.9 Emphysema, unspecified; M54.41 Lumbago with sciatica, right side; R74.8 Abnormal levels of other serum enzymes; M54.42 Lumbago with sciatica, left side; R74.0 Nonspecific elevation of levels of transaminase and lactic acid dehydrogenase [LDH]; G89.29 Other chronic pain; K29.70 Gastritis, unspecified, without bleeding; E55.9 Vitamin D deficiency, unspecified; M19.90 Unspecified osteoarthritis, unspecified site; Z87.11 Personal history of peptic ulcer disease; Z71.6 Tobacco abuse counseling; Z90.49 Acquired absence of other specified parts of digestive tract; Z83.3 Family history of diabetes mellitus; Z88.6 Allergy status to analgesic agent; Z88.8 Allergy status to other drugs, medicaments and biological substances; Z91.041 Radiographic dye allergy status; Z91.040 Latex allergy status; Z79.82 Long term (current) use of aspirin; Z79.899 Other long term (current) drug therapy

== ENCOUNTER 2019-06-24 21:05 | Emergency (ER) | payer MEDICARE ==
[~2019-06-24] VITALS: Ht 149.8 cm; Wt 36.7 kg
[~2019-06-24 21:05] MED LIST changes: +'XANAX1 MG PO; +BUDESONIDE EC3 MG PO; +ECOTRIN325 M1 PO; +FUROSEMIDE20 M1 PO; +MAGIC SWIZZLE PO; +MUCINEX ER600 MG PO; +NEXIUM40 MG PO; +POTASSIUM CHLO10 ME4 PO; +REMERON15 M2 PO; +TAMIFLU 75MG CA75 MG PO; +ZYVOX600 MG PO
[2019-06-24 21:06] VITALS: BP 128/59
[2019-06-24 21:49] LABS: BASO % 0.2 % (0.0-1.0); EOS # 0.1 10*3/uL (0.0-0.4); EOS % 1.3 % (1.0-4.0); HEMATOCRIT 42.3 % (37.0-47.0); HEMOGLOBIN 13.1 g/dl (12.0-16.0); LYMPH # 2.7 10*3/uL (1.3-4.4); LYMPH % 30.9 % (27.0-41.0); MEAN CORPUSCULAR HGB 26.6 pg (27.0-31.0); MONO # 0.7 10*3/uL (0.1-1.0); MONO % 8.5 % (3.0-9.0); NEUT # 5.1 10*3/uL (2.3-7.9); NEUT % 58.8 % (47.0-73.0); PLATELET COUNT AUTOMATED 259 10*3/uL (130-400); RED BLOOD COUNT 4.92 10*6/uL (4.10-5.10); RED CELL DISTRI WIDTH 17.7 % (0-14.5); WHITE BLOOD COUNT 8.7 10*3/uL (4.8-10.8)
[2019-06-24 22:08] LABS: ALBUMIN 3.7 gm/dl (3.1-4.5); ALKALINE PHOSPHATASE 111 U/L (45-117); BUN 17 mg/dl (7-24); CHLORIDE 110 mmol/L (98-107); CREATININE 0.85 mg/dL (0.55-1.02); POTASSIUM 3.7 mmol/L (3.5-5.1); SGOT/AST 15 IU/L (3-35); SGPT/ALT 22 U/L (12-78); SODIUM 142 mmol/L (136-145); TOTAL PROTEIN 7.4 gm/dL (6.4-8.2)
[2019-06-24] MEDS ORDERED: ANAPROX DS550 MG PO (22:48)
[2019-06-24] MEDS ORDERED: Bactroban Oint22 GM T (23:04)
== END 2019-06-24 23:50 | disposition home or self-care (01) ==
LOC: ED 21:05
PROVIDERS: Physician Assistant
DX: M71.522 Other bursitis, not elsewhere classified, left elbow (principal); F17.200 Nicotine dependence, unspecified, uncomplicated; Z79.899 Other long term (current) drug therapy; Z79.82 Long term (current) use of aspirin; Z91.040 Latex allergy status; Z91.041 Radiographic dye allergy status; Z88.8 Allergy status to other drugs, medicaments and biological substances

== ENCOUNTER 2019-07-09 11:06 | Emergency (ER) | payer MEDICARE ==
[~2019-07-09] VITALS: Ht 152.4 cm; Wt 40.8 kg
[~2019-07-09 11:06] MED LIST changes: +Bactroban Oint22 GM T
[2019-07-09 11:07] VITALS: BP 139/62
[2019-07-09] MEDS ORDERED: ANTIBIOTIC28.4 GM T (11:59)
[2019-07-09] MEDS ORDERED: KEFLEX500 M1 PO (11:59)
== END 2019-07-09 12:15 | disposition home or self-care (01) ==
LOC: ED 11:06
DX: S51.812A Laceration without foreign body of left forearm, initial encounter (principal); M70.32 Other bursitis of elbow, left elbow; H92.03 Otalgia, bilateral; J02.9 Acute pharyngitis, unspecified; J44.9 Chronic obstructive pulmonary disease, unspecified; K21.9 Gastro-esophageal reflux disease without esophagitis; I48.91 Unspecified atrial fibrillation; F17.200 Nicotine dependence, unspecified, uncomplicated; Z91.041 Radiographic dye allergy status; Z88.8 Allergy status to other drugs, medicaments and biological substances; Z91.040 Latex allergy status; Z79.82 Long term (current) use of aspirin; Z79.899 Other long term (current) drug therapy; Z87.442 Personal history of urinary calculi; Z90.49 Acquired absence of other specified parts of digestive tract; X58.XXXA Exposure to other specified factors, initial encounter; Y93.89 Activity, other specified; Y92.098 Other place in other non-institutional residence as the place of occurrence of the external cause; Y99.8 Other external cause status

== ENCOUNTER → 2019-07-20 | Outpatient (CLI) | payer MEDICARE ==
[~2019-07-20] MED LIST changes: +ANTIBIOTIC28.4 GM T
== END | disposition home or self-care (01) ==
LOC: RAD 13:38
DX: M16.11 Unilateral primary osteoarthritis, right hip (principal); Z91.81 History of falling

== ENCOUNTER 2020-04-25 12:28 | Emergency (ER) | payer MEDICARE ==
[~2020-04-25] VITALS: Wt 41.3 kg
[2020-04-25 12:33] VITALS: BP 111/58
== END 2020-04-25 14:29 | disposition home or self-care (01) ==
LOC: ED 12:28
DX: S39.92XA Unspecified injury of lower back, initial encounter (principal); M54.9 Dorsalgia, unspecified; G89.29 Other chronic pain; I48.91 Unspecified atrial fibrillation; F41.9 Anxiety disorder, unspecified; K21.9 Gastro-esophageal reflux disease without esophagitis; G43.909 Migraine, unspecified, not intractable, without status migrainosus; J45.909 Unspecified asthma, uncomplicated; J44.9 Chronic obstructive pulmonary disease, unspecified; Z91.040 Latex allergy status; Z91.041 Radiographic dye allergy status; Z88.8 Allergy status to other drugs, medicaments and biological substances; Z79.899 Other long term (current) drug therapy; Z90.49 Acquired absence of other specified parts of digestive tract; X58.XXXA Exposure to other specified factors, initial encounter; Y93.89 Activity, other specified; Y92.89 Other specified places as the place of occurrence of the external cause; Y99.8 Other external cause status

== ENCOUNTER 2020-09-24 15:54 | Emergency (ER) | payer MEDICARE ==
[2020-09-24 15:59] VITALS: BP 124/72
[2020-09-24] MEDS ORDERED: AUGMENTIN 875875 MG PO (16:10)
== END 2020-09-24 16:43 | disposition home or self-care (01) ==
LOC: ED 15:54
DX: S60.511A Abrasion of right hand, initial encounter (principal); Z91.041 Radiographic dye allergy status; Z91.040 Latex allergy status; Z88.8 Allergy status to other drugs, medicaments and biological substances; Z79.899 Other long term (current) drug therapy; X58.XXXA Exposure to other specified factors, initial encounter; Y93.89 Activity, other specified; Y92.89 Other specified places as the place of occurrence of the external cause; Y99.8 Other external cause status

== ENCOUNTER 2021-08-18 14:00 | Emergency (ER) | payer MEDICARE ==
[~2021-08-18] VITALS: Ht 152.4 cm; Wt 41.7 kg
[~2021-08-18 14:00] MED LIST changes: +AUGMENTIN 875875 MG PO
[2021-08-18 15:06] LABS: BASO % 0.3 % (0.0-1.0); EOS # 0.1 10*3/uL (0.0-0.4); EOS % 1.3 % (1.0-4.0); HEMATOCRIT 52.1 % (37.0-47.0); LYMPH # 1.5 10*3/uL (1.3-4.4); LYMPH % 14.1 % (27.0-41.0); MEAN CORPUSCULAR HGB 27.7 pg (27.0-31.0); MEAN CORPUSCULAR HGB CONC 31.9 g/dl (33.0-37.0); MONO # 0.7 10*3/uL (0.1-1.0); MONO % 6.2 % (3.0-9.0); NEUT # 8.5 10*3/uL (2.3-7.9); NEUT % 77.7 % (47.0-73.0); PLATELET COUNT AUTOMATED 332 10*3/uL (130-400); RED BLOOD COUNT 5.99 10*6/uL (4.10-5.10); RED CELL DISTRI WIDTH 15.9 % (0-14.5)
[2021-08-18 15:19] LABS: ACT PARTIAL THROMBO TIME 28.6 SECONDS (20.0-32.1)
[2021-08-18 15:22] LABS: BILIRUBIN Negative (Negative); BLOOD Negative (Negative); CLARITY Clear (Clear); COLOR Dark Yellow (Yellow); GLUCOSE Negative (Negative); KETONE Trace (Negative); LEUKO ESTERASE Trace (Negative); NITRITE Negative (Negative); PH 5.5 (4.5-8.0); SPECIFIC GRAVITY 1.025 (1.001-1.030)
[2021-08-18 15:24] LABS: ALBUMIN 3.7 gm/dl (3.1-4.5); ALKALINE PHOSPHATASE 124 U/L (45-117); BUN 20 mg/dl (7-24); CHLORIDE 107 mmol/L (98-107); CREATININE 0.79 mg/dL (0.55-1.02); LIPASE 68 U/L (73-393); POTASSIUM 4.1 mmol/L (3.5-5.1); SGOT/AST 18 IU/L (3-35); SGPT/ALT 23 U/L (12-78); SODIUM 139 mmol/L (136-145)
[2021-08-18 15:28] LABS: TROPONIN I < 0.015 ng/ml (<0.045)
[2021-08-18 15:47] LABS: BACTERIA 1+; HYALINE CAST TNTC; MUCOUS 1+
[2021-08-18 19:09] VITALS: BP 118/53
== END 2021-08-18 22:11 | disposition home or self-care (01) ==
LOC: ED 14:00
PROVIDERS: Emergency Medicine
DX: R10.9 Unspecified abdominal pain (principal); D75.1 Secondary polycythemia; R05.9 Cough, unspecified; R07.81 Pleurodynia; R00.2 Palpitations; I48.91 Unspecified atrial fibrillation; F17.200 Nicotine dependence, unspecified, uncomplicated; Z91.041 Radiographic dye allergy status; Z91.040 Latex allergy status; Z88.8 Allergy status to other drugs, medicaments and biological substances; Z79.899 Other long term (current) drug therapy; Z79.82 Long term (current) use of aspirin

== ENCOUNTER → 2021-12-29 | Day surgery (SDC) | payer MEDICARE ==
[~2021-12-29] VITALS: Ht 149.8 cm; Wt 38.6 kg
[~2021-12-29] MED LIST changes: +CHLORZOXAZONE750 MG PO; +PERCOCET 10-321 EACH PO; +PROAIR HFA8.5 GM INH; +SERTRALINE HCL150 MG PO; +TRELEGY ELLIPT1 EACH INH
[2021-12-29 08:58] VITALS: BP 112/62
[2021-12-29 10:11] VITALS: BP 138/63
[2021-12-29 10:25] VITALS: BP 138/62
[2021-12-29 10:41] VITALS: BP 130/63
[2021-12-30 11:07] LABS: ACID FAST SPEC PROCESSING Concentration (.)
== END | disposition home or self-care (01) ==
LOC: SDC 12-28 11:00
PROVIDERS: ATTEND Internal Medicine Critical Care Medicine
DX: R05.3 Chronic cough (principal); F41.9 Anxiety disorder, unspecified; K21.9 Gastro-esophageal reflux disease without esophagitis; J43.9 Emphysema, unspecified; G43.909 Migraine, unspecified, not intractable, without status migrainosus; I48.91 Unspecified atrial fibrillation; I25.10 Atherosclerotic heart disease of native coronary artery without angina pectoris; Z98.890 Other specified postprocedural states; Z79.899 Other long term (current) drug therapy

== ENCOUNTER → 2022-12-26 | Outpatient (CLI) | payer MEDICARE | END | disposition home or self-care (01) | LOC: LAB 14:16 | PROVIDERS: ATTEND Nurse Practitioner Family | DX: R93.3 Abnormal findings on diagnostic imaging of other parts of digestive tract (principal); Z87.19 Personal history of other diseases of the digestive system ==

== ENCOUNTER 2023-03-06 19:17 | Emergency (ER) | payer MEDICARE ==
[~2023-03-06] VITALS: Ht 149.8 cm; Wt 36.3 kg
[2023-03-06 20:00] VITALS: BP 140/57
[2023-03-06 20:52] LABS: BASO % 0.4 % (0.0-1.0); EOS # 0.3 10*3/uL (0.0-0.4); EOS % 3.8 % (1.0-4.0); HEMATOCRIT 44.4 % (37.0-47.0); LYMPH # 1.8 10*3/uL (1.3-4.4); LYMPH % 24.5 % (27.0-41.0); MEAN CELL VOLUME 91.9 fl (81.0-99.0); MEAN CORPUSCULAR HGB 29.2 pg (27.0-31.0); MEAN CORPUSCULAR HGB CONC 31.8 g/dl (33.0-37.0); MEAN PLATELET VOLUME 10.1 fl (9.6-12.3); MONO # 0.7 10*3/uL (0.1-1.0); MONO % 9.2 % (3.0-9.0); NEUT # 4.6 10*3/uL (2.3-7.9); PLATELET COUNT AUTOMATED 270 10*3/uL (130-400); RED BLOOD COUNT 4.83 10*6/uL (4.10-5.10); WHITE BLOOD COUNT 7.4 10*3/uL (4.8-10.8)
[2023-03-06 21:22] LABS: ALKALINE PHOSPHATASE 106 U/L (46-116); BUN 14 mg/dl (9-23); CHLORIDE 109 mmol/L (98-107); POTASSIUM 3.7 mmol/L (3.4-5.1); SGPT/ALT 13 U/L (10-49)
[2023-03-06] MEDS ORDERED: VIBRAMYCIN100 MG PO (22:30)
== END 2023-03-06 22:39 | disposition home or self-care (01) ==
LOC: ED 19:17
PROVIDERS: Student in an Organized Health Care Education/Training Program
DX: L03.114 Cellulitis of left upper limb (principal); F41.9 Anxiety disorder, unspecified; K21.9 Gastro-esophageal reflux disease without esophagitis; G43.909 Migraine, unspecified, not intractable, without status migrainosus; I34.1 Nonrheumatic mitral (valve) prolapse; I48.91 Unspecified atrial fibrillation; I10 Essential (primary) hypertension; Z91.041 Radiographic dye allergy status; Z88.8 Allergy status to other drugs, medicaments and biological substances; Z91.040 Latex allergy status; J44.9 Chronic obstructive pulmonary disease, unspecified; R73.9 Hyperglycemia, unspecified; E87.6 Hypokalemia; M19.90 Unspecified osteoarthritis, unspecified site; Z87.442 Personal history of urinary calculi; Z90.49 Acquired absence of other specified parts of digestive tract; Z90.710 Acquired absence of both cervix and uterus; Z98.890 Other specified postprocedural states; F17.200 Nicotine dependence, unspecified, uncomplicated

== ENCOUNTER 2023-12-01 17:03 | Emergency (ER) | payer MEDICARE ==
[~2023-12-01] VITALS: Ht 149.8 cm; Wt 34.0 kg
[2023-12-01 17:15] VITALS: BP 129/54
== END 2023-12-01 17:53 | disposition home or self-care (01) ==
LOC: ED 17:03
DX: S62.396A Other fracture of fifth metacarpal bone, right hand, initial encounter for closed fracture (principal); J44.9 Chronic obstructive pulmonary disease, unspecified; R73.9 Hyperglycemia, unspecified; E87.6 Hypokalemia; M19.90 Unspecified osteoarthritis, unspecified site; F41.9 Anxiety disorder, unspecified; K21.9 Gastro-esophageal reflux disease without esophagitis; G43.909 Migraine, unspecified, not intractable, without status migrainosus; Z87.442 Personal history of urinary calculi; I48.91 Unspecified atrial fibrillation; I10 Essential (primary) hypertension; F17.200 Nicotine dependence, unspecified, uncomplicated; Z90.49 Acquired absence of other specified parts of digestive tract; Z91.041 Radiographic dye allergy status; Z88.8 Allergy status to other drugs, medicaments and biological substances; Z91.040 Latex allergy status; Z98.890 Other specified postprocedural states; Z90.710 Acquired absence of both cervix and uterus; W22.8XXA Striking against or struck by other objects, initial encounter; Y93.89 Activity, other specified; Y92.89 Other specified places as the place of occurrence of the external cause; Y99.8 Other external cause status

== ENCOUNTER → 2023-12-13 | Outpatient (CLI) | payer MEDICARE | END | disposition home or self-care (01) | LOC: RAD 13:59 | PROVIDERS: ATTEND Orthopaedic Surgery | DX: M81.0 Age-related osteoporosis without current pathological fracture (principal) ==

== ENCOUNTER → 2023-12-25 | Outpatient (CLI) | payer MEDICARE | END | disposition home or self-care (01) | LOC: ORTHO 02:42 | PROVIDERS: ATTEND Orthopaedic Surgery | DX: S62.326D Displaced fracture of shaft of fifth metacarpal bone, right hand, subsequent encounter for fracture with routine healing (principal); M19.041 Primary osteoarthritis, right hand; X58.XXXD Exposure to other specified factors, subsequent encounter ==

== ENCOUNTER → 2024-01-14 | Outpatient (CLI) | payer MEDICARE ==
[2024-01-14 15:59] LABS: BASO % 0.2 % (0.0-1.0); EOS % 0.4 % (1.0-4.0); HEMATOCRIT 40.7 % (37.0-47.0); LYMPH % 20.9 % (27.0-41.0); MEAN CELL VOLUME 91.7 fl (81.0-99.0); MEAN CORPUSCULAR HGB 29.3 pg (27.0-31.0); MEAN CORPUSCULAR HGB CONC 31.9 g/dl (33.0-37.0); MEAN PLATELET VOLUME 10.1 fl (9.6-12.3); MONO # 0.4 10*3/uL (0.1-1.0); MONO % 7.9 % (3.0-9.0); NEUT # 3.2 10*3/uL (2.3-7.9); NEUT % 70.4 % (47.0-73.0); PLATELET COUNT AUTOMATED 231 10*3/uL (130-400); RED BLOOD COUNT 4.44 10*6/uL (4.10-5.10); RED CELL DISTRI WIDTH 13.6 % (0-14.5); WHITE BLOOD COUNT 4.5 10*3/uL (4.8-10.8)
[2024-01-14 16:22] LABS: ALKALINE PHOSPHATASE 85 U/L (46-116); BUN 8 mg/dl (9-23); CHLORIDE 104 mmol/L (98-107); LIPASE 29 U/L (12-53); POTASSIUM 4.1 mmol/L (3.4-5.1); SGPT/ALT 14 U/L (5-49); TOTAL PROTEIN 6.6 gm/dL (6.0-8.0)
== END | disposition home or self-care (01) ==
LOC: LAB 15:21
PROVIDERS: ATTEND Nurse Practitioner Family
DX: J44.9 Chronic obstructive pulmonary disease, unspecified (principal); E87.6 Hypokalemia; R63.4 Abnormal weight loss; R53.82 Chronic fatigue, unspecified; J43.9 Emphysema, unspecified; I70.0 Atherosclerosis of aorta; M41.86 Other forms of scoliosis, lumbar region; M47.816 Spondylosis without myelopathy or radiculopathy, lumbar region; M19.011 Primary osteoarthritis, right shoulder

== ENCOUNTER → 2024-02-24 | Outpatient (CLI) | payer MEDICARE | END | disposition home or self-care (01) | LOC: CARD 09:54 | PROVIDERS: ATTEND Internal Medicine Cardiovascular Disease | DX: I34.0 Nonrheumatic mitral (valve) insufficiency (principal); I70.0 Atherosclerosis of aorta; R94.31 Abnormal electrocardiogram [ECG] [EKG]; R06.09 Other forms of dyspnea ==

== ENCOUNTER → 2024-04-20 | Outpatient (CLI) | payer MEDICARE ==
[2024-04-20 14:25] LABS: BASO % 0.1 % (0.0-1.0); EOS # 0.2 10*3/uL (0.0-0.4); EOS % 2.2 % (1.0-4.0); LYMPH # 2.4 10*3/uL (1.3-4.4); LYMPH % 33.9 % (27.0-41.0); MEAN CELL VOLUME 93.4 fl (81.0-99.0); MEAN CORPUSCULAR HGB 29.8 pg (27.0-31.0); MEAN CORPUSCULAR HGB CONC 31.9 g/dl (33.0-37.0); MEAN PLATELET VOLUME 9.7 fl (9.6-12.3); MONO # 0.6 10*3/uL (0.1-1.0); MONO % 8.4 % (3.0-9.0); NEUT # 3.9 10*3/uL (2.3-7.9); NEUT % 54.8 % (47.0-73.0); PLATELET COUNT AUTOMATED 205 10*3/uL (130-400); RED BLOOD COUNT 3.96 10*6/uL (4.10-5.10); RED CELL DISTRI WIDTH 14.6 % (0-14.5); WHITE BLOOD COUNT 7.2 10*3/uL (4.8-10.8)
== END | disposition home or self-care (01) ==
LOC: LAB 14:01
PROVIDERS: ATTEND Physician Assistant Medical
DX: I48.0 Paroxysmal atrial fibrillation (principal); D62 Acute posthemorrhagic anemia

== ENCOUNTER → 2024-07-21 | Outpatient (CLI) | payer MEDICARE ==
[~2024-07-21] MED LIST changes: +ASPIRIN ADULT L81 M2 PO; +DULCOLAX5 M1 PO; +MELATONIN10 M2 PO; +STOOL SOFTENER100 MG PO
== END | disposition home or self-care (01) ==
LOC: RAD 17:24
PROVIDERS: ATTEND Nurse Practitioner Family
DX: J43.9 Emphysema, unspecified (principal)

== ENCOUNTER → 2024-08-12 | Outpatient (CLI) | payer MEDICARE | END | disposition home or self-care (01) | LOC: RAD 13:53 | PROVIDERS: ATTEND Nurse Practitioner Family | DX: J44.9 Chronic obstructive pulmonary disease, unspecified (principal); J69.0 Pneumonitis due to inhalation of food and vomit ==

== ENCOUNTER → 2024-12-03 | Outpatient (CLI) | payer MEDICARE | END | disposition home or self-care (01) | LOC: MRI 14:00 | PROVIDERS: ATTEND Nurse Practitioner Family | DX: G93.89 Other specified disorders of brain (principal); J69.0 Pneumonitis due to inhalation of food and vomit; F01.50 Vascular dementia, unspecified severity, without behavioral disturbance, psychotic disturbance, mood disturbance, and anxiety ==

== ENCOUNTER → 2024-12-31 | Outpatient (CLI) | payer MEDICARE | END | disposition home or self-care (01) | LOC: CARD 14:00 | PROVIDERS: ATTEND Nurse Practitioner Family | DX: I08.2 Rheumatic disorders of both aortic and tricuspid valves (principal); M16.11 Unilateral primary osteoarthritis, right hip; I50.32 Chronic diastolic (congestive) heart failure; M85.88 Other specified disorders of bone density and structure, other site ==

== ENCOUNTER 2025-09-21 18:17 | Emergency (ER) | payer MEDICARE ==
[~2025-09-21] VITALS: Wt 33.6 kg
[~2025-09-21 18:17] MED LIST changes: +ALLERGY RELIEF10 M2 PO; +AMITRIPTYLINE H10 M1 PO; +ATORVASTATIN CA10 M1 PO; +CO Q-1050 M1 PO; +ELIQUIS2.5 M1 PO; +LISINOPRIL2.5 MG PO; +LOPRESSOR25 MG PO
[2025-09-21 18:37] VITALS: BP 110/60
[2025-09-21 19:31] LABS: BASO # 0.0 10*3/uL (0.0-0.1); BASO % 0.1 % (0.0-1.0); EOS # 0.1 10*3/uL (0.0-0.4); EOS % 1.0 % (1.0-4.0); MEAN CELL VOLUME 82.7 fl (81.0-99.0); MEAN CORPUSCULAR HGB 25.2 pg (27.0-31.0); MEAN PLATELET VOLUME 10.2 fl (9.6-12.3); MONO # 0.6 10*3/uL (0.1-1.0); MONO % 8.2 % (3.0-9.0); NEUT # 4.9 10*3/uL (2.3-7.9); NEUT % 72.7 % (47.0-73.0); NUCLEATED RED BLOOD CELL 0.0 % (0.0-0.0); NUCLEATED RED BLOOD CELL 0.0 10*3/uL (0.0-0.0); PLATELET COUNT AUTOMATED 283 10*3/uL (130-400); RED CELL DISTRI WIDTH 15.4 % (0-14.5)
[2025-09-21] MEDS ORDERED: ALPRAZolam 0.25 MG TAB PO ONE ×2 (19:35→21:15)
[2025-09-21 19:52] LABS: BILIRUBIN Negative (Negative); BLOOD Negative (Negative); CLARITY Clear (Clear); COLOR Yellow (Yellow); KETONE Negative (Negative); LEUKO ESTERASE Negative (Negative); NITRITE Negative (Negative); PH 6.0 (4.5-8.0); SPECIFIC GRAVITY 1.010 (1.001-1.030); UROBILINOGEN 0.2 E.U./dl (0.0-1.0)
[2025-09-21 19:54] LABS: BUN 14 mg/dl (9-23)
[2025-09-21] MEDS ORDERED: SODIUM CHLORIDE 0.9% 500 ML IV ONE (20:05)
== END 2025-09-21 21:30 | disposition home or self-care (01) ==
LOC: ED 18:17
PROVIDERS: Internal Medicine
DX: F13.939 Sedative, hypnotic or anxiolytic use, unspecified with withdrawal, unspecified (principal); E87.1 Hypo-osmolality and hyponatremia; D64.9 Anemia, unspecified; F41.9 Anxiety disorder, unspecified; K21.9 Gastro-esophageal reflux disease without esophagitis; J44.9 Chronic obstructive pulmonary disease, unspecified; G43.909 Migraine, unspecified, not intractable, without status migrainosus; I48.91 Unspecified atrial fibrillation; Z90.89 Acquired absence of other organs; Z90.710 Acquired absence of both cervix and uterus; Z98.890 Other specified postprocedural states; Z88.8 Allergy status to other drugs, medicaments and biological substances; Z91.040 Latex allergy status